=== PATIENT | female | born 1955 | race Caucasian/White ===

== ENCOUNTER → 2016-09-19 | Outpatient (CLI) | payer MEDICARE ==
[2015-11-09 11:00] VITALS: BP 127/73
[~2016-09-19] MED LIST: ALPR1TAB2 PO; AMIT50TA PO; ASCO500T3 PO; ASPI81TA2 PO; ATOR40TA PO; CALC-128 PO; CALC500T50 PO; CHOL100017 PO; CITA20TA5 PO; CLOP75TA PO; CLOP75TA27 PO; CYAN50LO PO; CYCL10TA2 PO; DABI150C PO; DICY10CA3 PO; ERGO500012 PO; ERGO50002 PO; ESZO3TAB9 PO; EZET10TA3 PO; FAMO-63 PO; FENO160T PO; FERR-26 PO; FERR325T72 PO; FISH OIL OMEGA1 EACH PO; GABA600T2 PO; IBUP-1060 PO; LACT1CAP21 PO; LEVO200T5 PO; LEVO25TA4 PO; LOSA50TA6 PO; LUTE10TA PO; METF500T4 PO; METH-39 PO; MULT-246 PO; MULT1TAB77 PO; OMEG500C3 PO; OXYC5TAB88 PO; PANT40TA3 PO; PARO20TA3 PO; POTA10TA12 PO; PROAIR HFA8.5 GM INH; SOTA80TA48 PO; TRAM50TA PO; VITA1TAB49 PO; VITA80003 PO; WARF-78 PO
--- NOTE | 2016-09-19 10:10 | RAD ---
Indication: Dizziness and syncope. Grayscale, color-flow and duplex Doppler evaluation of both carotid systems was performed. There is mild plaquing identified at both carotid bifurcations and proximal internal carotid arteries. Velocities in both common carotid arteries are normal. The velocities in both internal carotid arteries are normal. There is some mild velocity elevation in the right external carotid artery reaching 202 cm/s. The left vertebral artery shows antegrade flow. There is bidirectional flow in the right vertebral artery. The ICA/CCA ratio on the right is 1.1 and on the left 1.5. Impression: Mild bilateral carotid plaque. There is no evidence of a hemodynamically significant stenosis.
== END | disposition home or self-care (01) ==
LOC: US 09:10
PROVIDERS: ATTEND Family Medicine
DX: G45.9 Transient cerebral ischemic attack, unspecified (principal); R55 Syncope and collapse
CPT/HCPCS: 93880

== ENCOUNTER → 2016-09-28 | Outpatient (CLI) | payer MEDICARE ==
[2015-11-09 11:00] VITALS: BP 127/73
--- NOTE | 2016-09-28 10:57 | CARD ---
APPROVED REPORT PROCEDURE: Successful implantation of [employer]ik Biomonitor loop recorder INDICATIONS: Recurrent syncope of uncertain etiology r/o atrial fibrillation PROCEDURE DETAILS: An informed consent was obtained from patient. Patient was brought to the procedure suite and her le ft chest and shoulder were prepped and draped in the usual fashion. 20 mL of 2% lidocaine was infilt rated into the skin and subcutaneous tissues for local anesthesia. An incision was made in the left fifth intercostal space 1 inch from midsternal line and using the introducer provided with the kit a track was created in subcutaneous tissue. Subsequently, with the help of the deployer provided with the kit, a Bi[employer]ik Biomonitor loop recorder serial number [id number] was placed in the subcutaneous tis kaden. The incision was closed in one layer. Hemostasis was secured. Patient tolerated the procedure well. There were no immediate complications. At the end of procedure, the device showed sensing am plitude of 0.55 mV. CONCLUSION: Successful implantation of Biotronik Biomonitor loop recorder for recurrent syncope of uncertain etio logy to rule out any significant arrhythmias.
== END | disposition home or self-care (01) ==
LOC: LINQ 08:34
PROVIDERS: ATTEND Internal Medicine Cardiovascular Disease
DX: I48.91 Unspecified atrial fibrillation (principal); I10 Essential (primary) hypertension; E78.00 Pure hypercholesterolemia, unspecified; J44.9 Chronic obstructive pulmonary disease, unspecified; E66.9 Obesity, unspecified; K21.9 Gastro-esophageal reflux disease without esophagitis; M19.90 Unspecified osteoarthritis, unspecified site; E03.9 Hypothyroidism, unspecified; E11.9 Type 2 diabetes mellitus without complications; F41.9 Anxiety disorder, unspecified; F32.9 Major depressive disorder, single episode, unspecified; Z96.642 Presence of left artificial hip joint; Z72.89 Other problems related to lifestyle; Z72.0 Tobacco use; Z90.49 Acquired absence of other specified parts of digestive tract
CPT/HCPCS: 33282; C1764

== ENCOUNTER → 2016-10-05 | Outpatient (CLI) | payer MEDICARE ==
[2015-11-09 11:00] VITALS: BP 127/73
[~2016-10-05] MED LIST changes: +REGADENOSON 0.4 MG/5 ML DISP.SYRIN. IV ONE
--- NOTE | 2016-10-05 13:25 | RAD ---
APPROVED REPORT Test Type: Pharmacological Stress Nurse/Tech: Amelie Polanco R.N. Test Indications: Chest pain, SOA, Syncope Cardiac History: Coronary Stent, HTN Medications: SEE EMR Medical History: Smoker x 45 years, DM, COPD Resting ECG: SR Resting Heart Rate: 65 bpm Resting Blood Pressure: 150/58mmHg Pretest Chest Pain: No chest pain Nurse/Tech Notes S1S2, lungs diminished throughout but no crackles or wheezes noted, denied chest pain, SOA or dizzine ss. Placed on 2LNC for 02 sats 88-89%RA. Consent: The procedure was explained to the patient in lay terms. Informed consent was witnessed. Max eout was entered into [employer]. History and Stress Test performed by Amelie Polanco R.N. Pharm. Details Pharmacologic stress testing was performed using 0.4mg per 5ml of regadenoson given intravenously ove r 7-10 seconds. Stress Symptoms SOA, nausea. POST EXERCISE Reason for Termination: Infusion complete Max HR: 82 bpm Max Blood Pressure: 158/54mmHg Blood Pressure response to exercise: Normal blood pressure response during stress. Heart Rate response to exercise: Normal Chest Pain: No. Arrhythmia: No. ST Change: No. INTERPRETATION Stress EKG Conclusion: Baseline EKG showed sinus rhythm. No ischemic changes at peak stress. No arr hythmias. Imaging Protocol IMAGE PROTOCOL: Rest Tc-99m/stress Tc-99m 1 day Rest: Stress: Viability: Radiopharm.Tc99m SfesrejxiAt49g Sestamibi Dose10.5mCi 34mCi Duration 15min. 10min. Img Date 10/05/2016 10/05/2016 Inj-Img Qwod04oxg. 60min. Rest Admin Site:IV - Right AntecubitalAdministrator:RT Jun (R)(N) Stress Admin Site: IV - Right AntecubitalAdministrator: LORI [place] STRESS DATA End Diast. Vol.84.0mlAv. Heart Rate74.0bpm End Syst. Vol.18.0mlCO Index BSA0.0L/min Myocardial Wzvl453.0gEject. Hcfdtbty11.0% Stress Rates Pk. Fill Rate2.25EDV/secLVtime Pk. Fill 198.36msec Pk. Empty Rate3.46ESV/secLVtime Pk. Xyiqp047.88msec 1/3 Pk. Fill1.05EDV/sec Stress Scores Regional WT1.00Summed WT2.00 Regional WM0.00Summed WM1.00 Study quality was good. Left Ventricular size was Normal at Rest and Stress. Lung uptake was Normal. Left Ventricular ejection fraction is 79%. The rest and stress images show normal perfusion, normal contraction and thickening. LV Perf. Quant 17 Seg. SSS2.00 17 Seg. SRS0.00 17 Seg. SDS2.00 Stress Defect Extent (% LAD)0.00Rest Defect Extent (% LAD)0.00Rev. Defect Extent (% LAD)0.00 Stress Defect Extent (% LCX) 15.00Rest Defect Extent (% LCX)7.50Rev. Defect Extent (% LCX)2.50 Stress Defect Extent (% RCA)0.00Rest Defect Extent (% RCA)0.00Rev. Defect Extent (% RCA)0.00 Stress Defect Extent (% NITIN)2.60Rest Defect Extent (% NITIN)1.30Rev. Defect Extent (% NITIN)0.40 Conclusion 1. Regadenoson cardioisotope stress test did not show any evidence of ischemia or infarct. 2. Normal left ventricular systolic function with ejection fraction calculated at 79%. 3. Low risk for cardiac events.
== END | disposition home or self-care (01) ==
LOC: NM 08:51
PROVIDERS: ATTEND Internal Medicine Cardiovascular Disease
DX: I25.10 Atherosclerotic heart disease of native coronary artery without angina pectoris (principal); E11.9 Type 2 diabetes mellitus without complications; I10 Essential (primary) hypertension; J44.9 Chronic obstructive pulmonary disease, unspecified; R11.0 Nausea; F17.200 Nicotine dependence, unspecified, uncomplicated; Z95.5 Presence of coronary angioplasty implant and graft
CPT/HCPCS: 78452; 93017; 96374; 96375; 96376; A9500; J2785

== ENCOUNTER → 2017-11-28 | Outpatient (CLI) | payer MEDICARE | END | disposition home or self-care (01) | LOC: ECHO 07:29 | DX: I25.10 Atherosclerotic heart disease of native coronary artery without angina pectoris (principal); E11.51 Type 2 diabetes mellitus with diabetic peripheral angiopathy without gangrene; E78.5 Hyperlipidemia, unspecified; E78.00 Pure hypercholesterolemia, unspecified; E03.9 Hypothyroidism, unspecified; J44.9 Chronic obstructive pulmonary disease, unspecified; I12.9 Hypertensive chronic kidney disease with stage 1 through stage 4 chronic kidney disease, or unspecified chronic kidney disease; N18.9 Chronic kidney disease, unspecified; K21.9 Gastro-esophageal reflux disease without esophagitis; E66.9 Obesity, unspecified | CPT/HCPCS: 93306 ==

== ENCOUNTER → 2018-04-24 | Outpatient (CLI) | payer MEDICARE ==
[2016-10-30 14:39] VITALS: BP 142/62
[~2018-04-24] MED LIST changes: +ASPI-630 PO; -ASPI81TA2 PO; +BENZ100C PO; -CALC500T50 PO; +CALC500T54 PO; -CITA20TA5 PO; +CITA20TA6 PO; -CLOP75TA27 PO; +CLOP75TA57 PO; +CRESTOR10 MG PO; +CRESTOR20 MG PO; -ERGO500012 PO; +ERGO500027 PO; +ESZO3TAB28 PO; -ESZO3TAB9 PO; +EZET10TA18 PO; -EZET10TA3 PO; -FERR-26 PO; +FERR325T14 PO; +HYDR12.575 PO; +ISOS30TA4 PO; +LEVO200T PO; +LOSA-73 PO; -LOSA50TA6 PO; -LUTE10TA PO; +LUTE10TA2 PO; +METF500T16 PO; -METF500T4 PO; -REGADENOSON 0.4 MG/5 ML DISP.SYRIN. IV ONE
--- NOTE | 2018-04-24 12:05 | KCIC ---
PQRS Compliance statement: One or more of the following individualized dose reduction techniques were utilized for this examination: 1. Automated exposure control. 2. Adjustment of the mA and/or kV according to patient size. 3. Use of iterative reconstruction technique. Indication:Right arm weakness. Hypertension. TECHNIQUE: CT head without IV contrast COMPARISON: None FINDINGS: No pathologic extra-axial or intra-axial fluid collection. The ventricles and basal cisterns are within normal limits. No acute intracranial bleed. No focal loss of villalta-white differentiation. Orbits within normal limits. No suspicious bony lesion. Visualized paranasal sinuses and mastoid air cells are clear. Impression: No acute intracranial process. If concern for acute ischemic stroke is high, please consider MRI brain. Electronically signed by: Marco Figueroa DO (04/24/2018 12:01 PM) [facility]
--- NOTE | 2018-04-24 12:12 | KCIC ---
Bilateral digital screening mammograms: Reason for examination: Routine screening. Comparison is made to previous studies dated 01/12/2015 and 01/21/2009. Interpretation was made with the benefit of CAD. The skin and nipples show no abnormalities. No abnormal axillary lymph nodes are seen. The breast parenchyma shows scattered fibroglandular density. (Breast density: Category B.) There appears to be a new 6.1 mm nodule in the 1:00 B position of the left breast approximately 7 cm from the nipple mammographically. Recommend further evaluation with ultrasound. There are no other dominant masses, suspicious calcifications or architectural distortions. Some benign calcifications are present. Impression: New 6.1 mm nodule at the 1:00 B position of the left breast. Recommend further evaluation with ultrasound. BI-RADS Category 0: Incomplete. Needs additional imaging evaluation. "Our facility is accredited by the [employer] Mammography Program." This patient's information has been entered into a reminder system for the patient to be notified with the results of her examination and a target date for the next mammogram. Electronically signed by: Barbra East MD (04/24/2018 12:08 PM) [facility]
--- NOTE | 2018-04-24 12:23 | KCIC ---
BILATERAL DUPLEX CAROTID SONOGRAPHY History: Facial numbness. Comparison: Carotid Doppler ultrasound, September 19, 2016. Technique: Duplex sonography of the cervical portion of both carotid arteries was performed. Real-time grayscale, color flow Doppler, and Doppler spectral waveform analysis is performed. Findings: Right side: Peak systolic flow velocity of the CCA is 70 cm/sec. Peak systolic flow velocity of the ICA is 105 cm/sec. The ICA/CCA ratio is 1.3. Peak end diastolic flow velocity of the ICA is 31 cm/sec. The peak systolic velocity of the ECA is 202 cm/sec. This is unchanged from prior study. Mild echogenic plaque in the carotid bulb. Left side: Peak systolic flow velocity of the CCA is 60 cm/sec. Peak systolic flow velocity of the ICA is 111 cm/sec. The ICA/CCA ratio is 1.5. Peak end diastolic flow velocity of the ICA is 39 cm/sec. Peak systolic flow velocity of the ECA is 115 cm/sec. Mild echogenic plaque in the carotid bulb. Vertebral arteries: Bilateral vertebral arteries demonstrate antegrade flow. IMPRESSION: No hemodynamically significant internal carotid artery stenosis is identified. PQRS Compliance Statement - Stenosis calculations for CT, MR and conventional angiography are based upon measurement of the distal ICA diameter in accordance with the NASCET methodology. Stenosis calculations for carotid ultrasound studies are derived from validated velocity criteria which are known to correlate with the NASCET methodology. Electronically signed by: Koko Jorge MD (04/24/2018 12:20 PM) [id number]
== END | disposition home or self-care (01) ==
LOC: KCIC MAMMO 09:49
PROVIDERS: ATTEND Family Medicine
DX: Z12.31 Encounter for screening mammogram for malignant neoplasm of breast (principal); N63.21 Unspecified lump in the left breast, upper outer quadrant; I65.23 Occlusion and stenosis of bilateral carotid arteries; I10 Essential (primary) hypertension; E11.9 Type 2 diabetes mellitus without complications; J44.9 Chronic obstructive pulmonary disease, unspecified; R53.1 Weakness; Z87.891 Personal history of nicotine dependence; Z79.01 Long term (current) use of anticoagulants
CPT/HCPCS: 70450; 77067; 93880

== ENCOUNTER → 2019-03-13 | Outpatient (CLI) | payer OTHER ==
[2016-10-30 14:39] VITALS: BP 142/62
[~2019-03-13] MED LIST changes: +ALBU2.5V8 INH; -EZET10TA18 PO; +EZET10TA20 PO; -GABA600T2 PO; +GABA600T7 PO; -PANT40TA3 PO; +PANT40TA77 PO; -PROAIR HFA8.5 GM INH; +REGADENOSON 0.4 MG/5 ML DISP.SYRIN. IV ONE
--- NOTE | 2019-03-13 10:53 | CARD ---
MR#: [id number] Date of Study: 03/13/2019 Ordering Physician: JENIFER GOYAL, Referring Physician: JENIFER GOYAL, Tech: Sulma Larson APPROVED REPORT EXAM: Two-dimensional and M-mode echocardiogram with Doppler and color Doppler. Other Information Quality : AverageHR: 64bpm Technically limited study due to body habitus and smoking. INDICATION Atrial Fibrillation RISK FACTORS Hypertension Hyperlipidemia Diabetes 2D DIMENSIONS RVDd3.2 (2.9-3.5cm)Left Atrium(2D)3.2 (1.6-4.0cm) IVSd1.6 (0.7-1.1cm)Aortic Root(2D)2.9 (2.0-3.7cm) LVDd4.0 (3.9-5.9cm)LVOT Diameter2.0 (1.8-2.4cm) PWd1.3 (0.7-1.1cm)LVDs2.0 (2.5-4.0cm) FS (%) 49.1 %SV56.1 ml LVEF(%)81.0 (>50%) Aortic Valve AoV Peak Jason.153.5cm/sAoV VTI29.0cm AO Peak GR.9.4mmHgLVOT Peak Jason.122.8cm/s LVOT VTI 29.29cmAO Mean GR.5mmHg NANETTE (VMAX)1.63rl4YGG (VTI)3.13cm2 Mitral Valve MV E Ewvzvuwc62.8cm/sMV DECEL KMYA972ix MV A Bbjcbjcc31.5cm/sMV MXC671pe E/A Ratio0.7MVA (PHT)2.03cm2 TDI E/Lateral E'9.3E/Medial E'7.7 Pulmonary Valve PV Peak Ifguavrx341.8cm/sPV Peak Grad.5mmHg Tricuspid Valve TR P. Yupioaqw589lc/sRAP ZXUJQCOC4xxMb TR Peak Gr.34lsNcPCHW55kqLz Pulmonary Vein S1 Kxejqoze93.3cm/sD2 Cidtinti11.6cm/s PVa nltafxeo206jwdu LEFT VENTRICLE The left ventricle is normal size. There is moderate concentric left ventricular hypertrophy. The lef t ventricular systolic function is normal. The Ejection Fraction is 65-70%. There is normal LV segmen teresa wall motion. Transmitral Doppler flow pattern is Grade I-abnormal relaxation pattern. RIGHT VENTRICLE The right ventricle is normal size. There is normal right ventricular wall thickness. The right ventr icular systolic function is normal. ATRIA The left atrium size is normal. The right atrium size is normal. The interatrial septum is intact wit h no evidence for an atrial septal defect or patent foramen ovale as noted on 2-D or Doppler imaging. AORTIC VALVE The aortic valve is normal in structure and function. Doppler and Color Flow revealed no significant aortic regurgitation. There is no significant aortic valvular stenosis. MITRAL VALVE The mitral valve is normal in structure and function. There is no evidence of mitral valve prolapse. There is no mitral valve stenosis. Doppler and Color-flow revealed trace mitral regurgitation. TRICUSPID VALVE The tricuspid valve is normal in structure and function. Doppler and Color Flow revealed trace tricus pid regurgitation with an estimated PAP of 23 mmHg. There is no tricuspid valve stenosis. PULMONIC VALVE The pulmonic valve is not well visualized. Doppler and Color Flow revealed no pulmonic valvular regur gitation. GREAT VESSELS The aortic root is normal in size. The IVC is normal in size and collapses >50% with inspiration. PERICARDIAL EFFUSION There is no evidence of significant pericardial effusion. Critical Notification Critical Value: No <Conclusion> The left ventricular systolic function is normal. The Ejection Fraction is 65-70%. There is normal LV segmental wall motion. Transmitral Doppler flow pattern is Grade I-abnormal relaxation pattern. Trace mitral regurgitation. Trace tricuspid regurgitation with an estimated PAP of 23 mmHg. There is no evidence of significant pericardial effusion. Signed by : Jenifer Goyal, Electronically Approved : 03/13/2019 10:52:54
--- NOTE | 2019-03-13 12:16 | RAD ---
MR#: [id number] Date of Study: 03/13/2019 Ordering Physician: JENIFER SHARMA, Referring Physician: TATI DUONG Tech: RT Darrick BarahonaR) (N) APPROVED REPORT Test Type: Pharmacological Stress Nurse/Tech: Zachariah ABRAHAM Test Indications: CAD Cardiac History: CAD, 1 stent 5 yrs ago, HTN, Implanted heart monitor, See EMR Medications: Plavix, See EMR Medical History: Smoker x45yrs., COPD, DM, See EMR Resting ECG: SR Resting Heart Rate: 65 bpm Resting Blood Pressure: 148/61mmHg Pretest Chest Pain: No chest pain Nurse/Tech Notes Lungs CTA, Heart tones regular. Consent: The procedure was explained to the patient in lay terms. Informed consent was witnessed. Max eout was entered into [employer]. History and Stress Test performed by RT Emma Barahona) (N) Pharm. Details Pharmacologic stress testing was performed using 0.4mg per 5ml of regadenoson given intravenously ove r 7-10 seconds. Stress Symptoms Pt c/o having CP at a 5/10 at stage R time OO:55. The patient then explained it as a anxiety feeling. This pain/feeling did not decrease or resolve until the patient was leaving the room. POST EXERCISE Reason for Termination: Infusion complete Max HR: 86 bpm Max Blood Pressure: 124/52mmHg Blood Pressure response to exercise: Normal blood pressure response during stress. Heart Rate response to exercise: WNL Chest Pain: Yes. See Stress Symptoms Arrhythmia: No. ST Change: No. INTERPRETATION Stress EKG Conclusion: No evidence of stress induced EKG changes. Imaging Protocol IMAGE PROTOCOL: Rest Tc-99m/stress Tc-99m 1 day Rest: Stress: Viability: Radiopharm.Tc99m FjqghytrtVa86h Sestamibi Nhee82rKa 33mCi Duration 13min. 13min. Img Date 03/13/2019 03/13/2019 Inj-Img Sswj51ela. 60min. Rest Admin Site:IV - Right AntecubitalAdministrator:RT Emma Ryan)(N) Stress Admin Site: IV - Right AntecubitalAdministrator: LORI [place] STRESS DATA End Diast. Vol.63.0mlAv. Heart Rate64.0bpm LVEDV index BSA33.0mlCardiac Output0.0L/min End Syst. Vol.13.0mlCO Index BSA0.0L/min LVESV index BSA7.0mlMyocardial Leza312.0g Eject. Vpsnizyj34.0% Stress Scores Regional WT2.00Summed WT14.00 Regional WM0.00Summed WM0.00 The rest and stress images show normal perfusion, normal contraction and thickening. LV Perfusion There is a very small sized, moderate intensity basal reversible perfusion defect suggestive of artif act given normal wall motion versus very mild pefusion defecit. Wall Motion Normal EF at > 60% LV Perf. Quant 17 Seg. SSS5.00 17 Seg. SRS0.00 17 Seg. SDS5.00 Stress Defect Extent (% LAD)0.00Rest Defect Extent (% LAD)0.00Rev. Defect Extent (% LAD)0.00 Stress Defect Extent (% LCX) 52.50Rest Defect Extent (% LCX)21.30Rev. Defect Extent (% LCX)41.30 Stress Defect Extent (% RCA)0.00Rest Defect Extent (% RCA)0.00Rev. Defect Extent (% RCA)0.00 Stress Defect Extent (% NITIN)9.10Rest Defect Extent (% NITIN)3.70Rev. Defect Extent (% NITIN)7.20 Other Information Quality:Good Risk Assessment: Low Risk Conclusion 1. No evidence of stress induced EKG changes. Non-specific ST/T changes at baseline and stress. 2. Very small basal lateral reversal perfusion defect, likely due to artifact or anatomic variant. 3. Low risk study 4. Normal EF at > 65% Signed by : Martin Lilly, Electronically Approved : 03/13/2019 12:15:38
== END | disposition home or self-care (01) ==
LOC: NM 07:53
PROVIDERS: ATTEND Internal Medicine Cardiovascular Disease
DX: I11.9 Hypertensive heart disease without heart failure (principal); I25.10 Atherosclerotic heart disease of native coronary artery without angina pectoris; I48.91 Unspecified atrial fibrillation; E78.5 Hyperlipidemia, unspecified; E11.9 Type 2 diabetes mellitus without complications; J44.9 Chronic obstructive pulmonary disease, unspecified; F17.200 Nicotine dependence, unspecified, uncomplicated; Z88.2 Allergy status to sulfonamides; Z91.041 Radiographic dye allergy status; Z95.818 Presence of other cardiac implants and grafts; Z79.01 Long term (current) use of anticoagulants
CPT/HCPCS: 78452; 93017; 93306; A9500; J2785

== ENCOUNTER → 2019-03-25 | Outpatient (CLI) | payer OTHER ==
[2016-10-30 14:39] VITALS: BP 142/62
[~2019-03-25] MED LIST changes: +AMLO10TA8 PO; +BUDE0.5A3 NEB; +CHOL100016 PO; +CRESTOR40 MG PO; +EVOL140P SQ; +LOSA100T14 PO; +MULT-496 PO; +NABU750T PO; -REGADENOSON 0.4 MG/5 ML DISP.SYRIN. IV ONE; +TIZA4TAB2 PO
--- NOTE | 2019-03-26 09:36 | RAD ---
MR#: [id number] Date of Study: 03/25/2019 Ordering Physician: JENIFER SHARMA, Referring Physician: JENIFER SHARMA, Tech: NICOLA Huerta, RDMS, RTR APPROVED REPORT Patient Location: OUT-PATIENT Indications Rest Pain:Bilaterally VELOCITY AND DOPPLER WAVEFORM ANALYSIS RIGHT cm/secWaveformSeverity LEFT cm/secWaveform Severity dCFA 130.0BiphasicdCFA 152.0Biphasic Prof Fem Art. 141.0BiphasicProf Fem Art. 70.0Biphasic Fem Art Prox. 135.0BiphasicFem Art Prox. 120.0Biphasic Fem Art Mid. 141.0BiphasicFem Art Mid. 150.0Biphasic Fem Art Dist. 141.0BiphasicFem Art Dist. 142.0Biphasic Pop Art(Fossa) 216.0BiphasicPop Art(AK) 135.0Biphasic AUTOMOTIVE BRAKE ADJUSTER Prox. 98.0BiphasicPTA Prox. 96.0Biphasic Per Art Mid. 67.0BiphasicPer Art Mid. 57.0Biphasic IVETH Prox. 105.0BiphasicATA Prox. 68.0Biphasic DPA 118BiphasicDPA 61Biphasic Findings Grayscale images of the bilateral lower extremity arterial vessels reveal moderate diffuse plaque. Th ere is mild to moderate intimal hyperplasia. On the right there are mostly biphasic waveforms from the common femoral artery to the below-knee ves sels. There is likely a 50% stenosis involving the popliteal artery. Below the knee there is robust t hree-vessel runoff. This suggests that the popliteal artery stenosis is likely not significant. On the left there are again biphasic waveforms from the common femoral artery to the below-knee vesse ls. No focal high-grade stenosis is identified with robust three-vessel runoff below the knee. Critical Notification Critical Value: No <Conclusion> 1. Probable mild to moderate right popliteal artery disease but otherwise grossly unremarkable with b ilateral three-vessel runoff. Signed by : Martin Lilly, Electronically Approved : 03/26/2019 09:35:35
== END | disposition home or self-care (01) ==
LOC: US 15:42
PROVIDERS: ATTEND Internal Medicine Cardiovascular Disease
DX: I70.293 Other atherosclerosis of native arteries of extremities, bilateral legs (principal)
CPT/HCPCS: 93925

== ENCOUNTER → 2019-03-31 | Outpatient (CLI) | payer OTHER ==
[2019-03-31] VITALS (11 sets, daily range): BP systolic 119–170; BP diastolic 53–97
[~2019-03-31] VITALS: Ht 160 cm; Wt 77.1 kg
[~2019-03-31] MED LIST changes: +FAMOTIDINE 20 MG/2 ML VIAL IVP ONE; +FAMOTIDINE 20 MG/2 ML VIAL ONE; +HEPARIN for IV BOLUS 10,000 UNIT/10 ML VIAL. IART ONE; +HEPARIN for IV BOLUS 10,000 UNIT/10 ML VIAL. ONE; +IODIXANOL 320 MG/ML 100 ML VIAL. IART ONE; +IODIXANOL 320 MG/ML 100 ML VIAL. ONE; +IV 1/2 NORMAL SALINE 1,000 ML IV SCH; +LIDOCAINE 1% PF 2 ML VIAL. INJ ONE; +LIDOCAINE 1% PF 2 ML VIAL. ONE; +MIDAZOLAM HCL/PF 2 MG/2 ML VIAL. IV ONE; +MIDAZOLAM HCL/PF 2 MG/2 ML VIAL. ONE; +NITROGLYCERIN 200 MCG/2 ML SYRINGE FOR CATH/VASC LAB. IART ONE; +NITROGLYCERIN 200 MCG/2 ML SYRINGE FOR CATH/VASC LAB. ONE; +NITROGLYCERIN SUBLINGUAL 0.4 MG BOTTLE OF 25. SL PRN; +VERAPAMIL 5 MG/2 ML VIAL. IART ONE; +VERAPAMIL 5 MG/2 ML VIAL. ONE; +diphenhydrAMINE 50 MG/ML VIAL IV ONE; +diphenhydrAMINE 50 MG/ML VIAL ONE; +fentaNYL PF VIAL 100 MCG/2 ML VIAL IV ONE; +fentaNYL PF VIAL 100 MCG/2 ML VIAL ONE; +methylPREDNISolone SOD SUCC PF 125 MG/2 ML VIAL. IV ONE; +methylPREDNISolone SOD SUCC PF 125 MG/2 ML VIAL. ONE
[2019-03-31 07:30] LABS: HEMATOCRIT 39.2 % (36.0-47.0); HEMOGLOBIN 13.1 g/dL (12.0-15.5); RED BLOOD COUNT 4.23 x10^6/uL (3.50-5.40); RED CELL DISTRIBUTION WIDTH 14.6 % (11.5-14.5); WHITE BLOOD COUNT 8.3 x10^3/uL (4.0-11.0)
[2019-03-31 07:41] LABS: PROTHROMBIN TIME PATIENT 11.6 SEC (11.7-14.0)
[2019-03-31 07:47] LABS: CALCIUM 8.7 mg/dL (8.5-10.1); CREATININE 0.8 mg/dL (0.6-1.0); GFR 72.7; POTASSIUM 4.2 mmol/L (3.5-5.1)
--- NOTE | 2019-03-31 09:25 | PDOC ---
MODERATE SEDATION ASSESSMENT RISKS/ALTERNATIVES Risks/Alternatives Risks and alternatives of this type of sedation and procedure discussed with: RISK/ALTERNATIVES: Patient H & P ON CHART H & P H & P on chart and reviewed for co-morbid conditions and appropriate labs. H&P ON CHART: Yes STATUS PREG STATUS ASSESSED: N/A MEDS/ALLERGIES REVIEWED Meds/Allergies Reviewed Medications and Allergies including time and route of recently administered narcotics and sedatives. MEDS/ALLERGIES REVIEWED: Yes ASA RATING ASA RATING: III AIRWAY ASSESSMENT Airway Assessment Airway patency, oral function limitations, presence of caps, crowns, dentures, partials, and ability to extend neck assessed. AIRWAY ASSESSMENT: Yes MALLAMPATI SCORE MALLAMPATI SCORE: II PRE-SEDATION ASSESSMENT PRE-SEDATION ASSESSMENT: Yes JENIFER SAHRMA MD Mar 31, 2019 09:25
--- NOTE | 2019-03-31 10:49 | CARD ---
MR#: [id number] Date of Study: 03/31/2019 Ordering Physician: JENIFER SHARMA, Referring Physician: JENIFER SHARMA Tech: ARMAND CANSECO RTR APPROVED REPORT Technologist: ARMAND CANSECO RTR Nurse: Katarina Du RN Procedure(s) performed: Left heart catheterization, selective coronary angiography via right transrad ial approach MODERATE SEDATIONTIME: 30 MINUTES FLUORO TIME: 4.0 MIN DOSE: 45.5 GYCM2 CONTRAST: 103CC INDICATION The indication(s) include : unstable angina . [facility] Clinical Frailty Scale [facility] Clinical Frailty Scale: Moderately Frail Heart Failure Heart Failure: No PROCEDURE NARRATIVE After explaining the risks, benefits and alternative options, informed consent was obtained from addy ent. Patient was brought to the cardiac Tank Inspector and right wrist was prepped and draped in the usual fashion after confirming a positive modified Gavin's test. Arterial access was obtained in the [facility] t radial artery and a 6 Colombian sheath was inserted. 6 Colombian Apolinar catheter was used to perform zachariah ective angiography of the left and right coronary arteries. LVEDP and transaortic gradients remeasure d. Left ventriculography was not performed since recent 2-D echo showed normal LV function. Patient t olerated the procedure well. Hemostasis was achieved using TR band. There were no immediate complic ations. The following findings were noted. FINDINGS 1. Hemodynamics: Left ventricular end-diastolic pressure of 29 mmHg. No pullback gradient across th e aortic valve. 2. Coronary angiography: a. The left main coronary artery arose from the left sinus of Valsalva, gave rise to the left anteri or descending, ramus intermedius and left circumflex arteries and did not show any significant stenos is. b. The left anterior descending artery did not show any significant stenosis in the main artery itse lf but the second diagonal branch which is a small-caliber vessel showed 80% proximal segment stenosi s. This was described in prior cardiac catheterization. c. The left circumflex artery showed 50% stenosis in the midsegment. The obtuse marginal branch whic h is a small-caliber vessel showed 40% proximal segment stenosis. d. The ramus intermedius artery showed 40% stenosis in the proximal segment. e. The right coronary artery was a large and dominant vessel arising from the right sinus of Valsalv a that showed widely patent stent in the midsegment and 30% stenosis just distal to the stent. Conclusion Widely patent previously placed stent in the right coronary artery without any lesions needing interv ention. Recommendations Medical Therapy Signed by : Jenifer Sharma, Electronically Approved : 03/31/2019 10:48:50
--- NOTE | 2019-03-31 12:58 | NUR ---
pt A&O x 3. tolerating po well. VSS. ambulated to BR w/o problem. rt radial site clean and dressed , no bleeding or swelling. armboard reapplied to rt wrist/hand area. d/c instructions given, questions answered. out to vehicle per w/c. pt's sister to drive her home.
== END ==
LOC: CCL 06:58
PROVIDERS: ATTEND Internal Medicine Cardiovascular Disease
DX: I25.110 Atherosclerotic heart disease of native coronary artery with unstable angina pectoris (principal)
CPT/HCPCS: 36415; 80048; 85027; 85610; 93458; 99152; 99153; C1769; C1892; J1200; J1644; J2250; J2930; J3010; J3490; Q9967

== ENCOUNTER 2019-06-23 06:56 | Observation (INO) | payer MEDICARE ==
[~2019-06-23] VITALS: Ht 157.5 cm; Wt 82.4 kg
[~2019-06-23 06:56] MED LIST changes: -EVOL140P SQ; +EVOL140P3 SQ; -FAMOTIDINE 20 MG/2 ML VIAL IVP ONE; -FAMOTIDINE 20 MG/2 ML VIAL ONE; -HEPARIN for IV BOLUS 10,000 UNIT/10 ML VIAL. IART ONE; -HEPARIN for IV BOLUS 10,000 UNIT/10 ML VIAL. ONE; -IODIXANOL 320 MG/ML 100 ML VIAL. IART ONE; -IODIXANOL 320 MG/ML 100 ML VIAL. ONE; -IV 1/2 NORMAL SALINE 1,000 ML IV SCH; -LIDOCAINE 1% PF 2 ML VIAL. INJ ONE; -LIDOCAINE 1% PF 2 ML VIAL. ONE; -MIDAZOLAM HCL/PF 2 MG/2 ML VIAL. IV ONE; -MIDAZOLAM HCL/PF 2 MG/2 ML VIAL. ONE; -NITROGLYCERIN 200 MCG/2 ML SYRINGE FOR CATH/VASC LAB. IART ONE; -NITROGLYCERIN 200 MCG/2 ML SYRINGE FOR CATH/VASC LAB. ONE; -NITROGLYCERIN SUBLINGUAL 0.4 MG BOTTLE OF 25. SL PRN; -POTA10TA12 PO; +POTASSIUM CHLO10 ME1 PO; -VERAPAMIL 5 MG/2 ML VIAL. IART ONE; -VERAPAMIL 5 MG/2 ML VIAL. ONE; +ceFAZolin SODIUM IV Push 1 GM VIAL. IVP ONE; -diphenhydrAMINE 50 MG/ML VIAL IV ONE; -diphenhydrAMINE 50 MG/ML VIAL ONE; -fentaNYL PF VIAL 100 MCG/2 ML VIAL IV ONE; -fentaNYL PF VIAL 100 MCG/2 ML VIAL ONE; -methylPREDNISolone SOD SUCC PF 125 MG/2 ML VIAL. IV ONE; -methylPREDNISolone SOD SUCC PF 125 MG/2 ML VIAL. ONE
[2019-06-23] MEDS ORDERED: METH-38 PO (07:41)
[2019-06-23] MEDS ORDERED: LABE100T5 PO (07:41)
[2019-06-23] MEDS ORDERED: GABA300C18 PO (07:41)
[2019-06-23] MEDS ORDERED: ALPR0.25 PO (07:41)
[2019-06-23 07:42] VITALS: BP 102/66
[2019-06-23 07:51] LABS: HEMATOCRIT 39.2 % (36.0-47.0); HEMOGLOBIN 12.9 g/dL (12.0-15.5); RED BLOOD COUNT 4.2 x10^6/uL (3.50-5.40); WHITE BLOOD COUNT 7.3 x10^3/uL (4.0-11.0)
--- NOTE | 2019-06-23 07:54 | EKG ---
[facility] [address] [place] [address] Test Date: 2019-06-23 Test Time: 07:50:36 Pat Name: JUAN RODAS Department: Room: Gender: F Costing Analyst: : 1955 Requested By: JENIFER SHARMA Order Number: [id number] Reading MD: Measurements Intervals [place] Rate: 50 P: MT: QRS: 30 QRSD: 94 T: 247 QT: 496 QTc: 455 Interpretive Statements IRREGULAR RHYTHM, NO P-WAVE FOUND R-S TRANSITION ZONE IN V LEADS DISPLACED TO THE LEFT LVH WITH REPOLARIZATION ABNORMALITY ABNORMAL ECG RI6.02 Compared to ECG 10/28/2016 08:47:18 Supraventricular rhythm no longer present Left-axis deviation no longer present Left anterior fascicular block no longer present Myocardial infarct finding no longer present
[2019-06-23 08:03] LABS: PROTHROMBIN TIME PATIENT 12.8 SEC (11.7-14.0)
[2019-06-23 08:04] LABS: CALCIUM 9.2 mg/dL (8.5-10.1); CREATININE 1.1 mg/dL (0.6-1.0); GFR 50.2; POTASSIUM 4.5 mmol/L (3.5-5.1)
[2019-06-23] MEDS ORDERED: fentaNYL PF VIAL 100 MCG/2 ML VIAL ONE ×2 (08:21→09:05)
[2019-06-23] MEDS ORDERED: MIDAZOLAM HCL/PF 2 MG/2 ML VIAL. ONE ×3 (08:21→08:56)
[2019-06-23] MEDS ORDERED: LIDOCAINE 2%/EPI 1:100,000 20 ML VIAL. ONE (08:45)
[2019-06-23] MEDS ORDERED: MIDAZOLAM HCL/PF 2 MG/2 ML VIAL. IV ONE (08:45)
[2019-06-23] MEDS ORDERED: fentaNYL PF VIAL 100 MCG/2 ML VIAL IV ONE (08:45)
[2019-06-23] MEDS ORDERED: LIDOCAINE 2%/EPI 1:100,000 20 ML VIAL. IJ ONE (08:45)
[2019-06-23] MEDS ORDERED: BACITRACIN 50,000 UNIT in IV NORMAL SALINE 250ML 250 ML IRR ONE (09:00)
[2019-06-23] MEDS ORDERED: diphenhydrAMINE 50 MG/ML VIAL ONE (09:03)
[2019-06-23] MEDS ORDERED: diphenhydrAMINE 50 MG/ML VIAL IVP ONE (09:30)
[2019-06-23 09:49] VITALS: BP 120/60
--- NOTE | 2019-06-23 09:51 | PDOC ---
MODERATE SEDATION ASSESSMENT RISKS/ALTERNATIVES Risks/Alternatives Risks and alternatives of this type of sedation and procedure discussed with: RISK/ALTERNATIVES: Patient H & P ON CHART H & P H & P on chart and reviewed for co-morbid conditions and appropriate labs. H&P ON CHART: Yes STATUS PREG STATUS ASSESSED: N/A MEDS/ALLERGIES REVIEWED Meds/Allergies Reviewed Medications and Allergies including time and route of recently administered narcotics and sedatives. MEDS/ALLERGIES REVIEWED: Yes ASA RATING ASA RATING: II AIRWAY ASSESSMENT Airway Assessment Airway patency, oral function limitations, presence of caps, crowns, dentures, partials, and ability to extend neck assessed. AIRWAY ASSESSMENT: Yes MALLAMPATI SCORE MALLAMPATI SCORE: II PRE-SEDATION ASSESSMENT PRE-SEDATION ASSESSMENT: Yes JENIFER SHARMA MD Jun 23, 2019 09:51
[2019-06-23] MEDS ORDERED: NO ANTICOAGULANT THERAPY. MC PRN (10:00)
[2019-06-23] MEDS: oxyCODONE/APAP 5/325 1 TAB TABLET PO PRN ×5 (10:11→23:13)
[2019-06-23 10:12] VITALS: BP 105/61
--- NOTE | 2019-06-23 11:01 | RAD ---
PORTABLE CHEST 1V Clinical indications: Post pacemaker placement. COMPARISON: October 28, 2016. Findings: Bipolar atrioventricular pacemaker has been placed via left subclavian approach. No pneumothorax is seen. No acute lung infiltrate or pleural effusion or pulmonary edema or lung mass is seen. The heart size, pulmonary vasculature, mediastinum and both [place] are unremarkable. Impression: No acute radiographic abnormality is seen. Electronically signed by: Dillon Guerra MD (06/23/2019 10:58 AM) [facility]
[2019-06-23] MEDS ORDERED: ALBUTEROL SULFATE 2.5 MG/3 ML NEBU. INH PRN (11:30)
[2019-06-23] MEDS ORDERED: DICYCLOMINE HCL 10 MG CAPSULE ONE (11:43)
[2019-06-23] MEDS ORDERED: GABAPENTIN 300 MG CAPSULE. PO ONE (11:43)
[2019-06-23] MEDS ORDERED: tiZANidine 4 MG TABLET. ONE (11:43)
[2019-06-23] MEDS ORDERED: METHOCARBAMOL 500 MG TABLET PO ONE (11:45)
[2019-06-23] MEDS: ALPRAZolam 0.25 MG TABLET PO PRN ×2 (11:58→20:53)
[2019-06-23] MEDS: DICYCLOMINE HCL 10 MG CAPSULE PO SCH ×2 (11:58→20:54)
[2019-06-23] MEDS: metFORMIN 500 MG TABLET PO SCH ×2 (11:58→17:38)
[2019-06-23] MEDS: tiZANidine 4 MG TABLET. PO SCH ×2 (11:58→20:55)
[2019-06-23] MEDS: GABAPENTIN 300 MG CAPSULE. PO SCH ×2 (11:58→20:54)
[2019-06-23 15:25] VITALS: BP 157/65
[2019-06-23 19:13] VITALS: BP 141/78
[2019-06-23] MEDS ORDERED: BUDESONIDE 0.5 MG/2 ML NEBU. NEB SCH (20:00)
[2019-06-23] MEDS: LABETALOL HCL 100 MG TABLET. PO SCH (20:53)
[2019-06-23] MEDS: SOTALOL 80 MG TABLET. PO SCH (20:54)
[2019-06-23] MEDS: METHOCARBAMOL 500 MG TABLET PO SCH (20:55)
[2019-06-23] MEDS: ATORVASTATIN CALCIUM 40 MG TABLET. PO SCH ×2 (20:55→21:00)
[2019-06-23 23:04] VITALS: BP 112/63
[2019-06-24] VITALS (8 sets, daily range): BP systolic 95–158; BP diastolic 51–66
[2019-06-24] MEDS: ALPRAZolam 0.25 MG TABLET PO PRN ×2 (03:08→09:53)
[2019-06-24] MEDS: oxyCODONE/APAP 5/325 1 TAB TABLET PO PRN ×3 (03:08→12:33)
[2019-06-24] MEDS ORDERED: LEVOTHYROXINE 100 MCG TABLET PO SCH (06:00)
[2019-06-24] MEDS ORDERED: PANTOPRAZOLE 40 MG TABLET.DR. PO SCH (07:30)
[2019-06-24] MEDS: tiZANidine 4 MG TABLET. PO SCH ×2 (07:50→13:47)
[2019-06-24] MEDS: SOTALOL 80 MG TABLET. PO SCH (07:51)
[2019-06-24] MEDS: GABAPENTIN 300 MG CAPSULE. PO SCH ×2 (07:52→13:47)
[2019-06-24] MEDS: DICYCLOMINE HCL 10 MG CAPSULE PO SCH ×2 (07:52→13:47)
[2019-06-24] MEDS ORDERED: POTASSIUM CHLORIDE 10 MEQ TABLET.ER. PO SCH (08:00)
[2019-06-24] MEDS ORDERED: BUDESONIDE 0.5 MG/2 ML NEBU. NEB SCH (08:00)
[2019-06-24] MEDS ORDERED: CLOPIDOGREL BISULFATE 75 MG TABLET PO SCH (08:00)
[2019-06-24] MEDS ORDERED: hydroCHLOROthiazide 12.5 MG CAPSULE PO SCH (09:00)
[2019-06-24] MEDS ORDERED: ASPIRIN CHEWABLE 81 MG TABLET. PO SCH (09:00)
[2019-06-24] MEDS ORDERED: LOSARTAN POTASSIUM 50 MG TABLET. PO SCH (09:00)
[2019-06-24] MEDS ORDERED: OMEGA-3 FATTY ACIDS/FISH OIL 1,000 MG CAPSULE. PO SCH (09:00)
[2019-06-24] MEDS: LABETALOL HCL 100 MG TABLET. PO SCH (09:00)
[2019-06-24] MEDS ORDERED: amLODIPine BESYLATE 10 MG TABLET PO SCH (09:00)
[2019-06-24] MEDS ORDERED: MULTIVITAMIN with MINERAL TABLET. PO SCH (09:00)
[2019-06-24] MEDS ORDERED: FENOFIBRATE,MICRONIZED 134 MG CAPSULE PO SCH (09:00)
[2019-06-24] MEDS ORDERED: ISOSORBIDE MONONITRATE ER 30 MG TAB.ER.24H PO SCH (09:00)
[2019-06-24] MEDS: metFORMIN 500 MG TABLET PO SCH (09:02)
[2019-06-24] MEDS: METHOCARBAMOL 500 MG TABLET PO SCH (09:02)
--- NOTE | 2019-06-24 10:12 | RAD ---
CHEST PA LATERAL Clinical indications: One day post pacemaker implantation COMPARISON: June 23, 2019. Findings: No acute lung infiltrate or pleural effusion or pulmonary edema or lung mass or pneumothorax is seen. Bipolar atrioventricular pacemaker is again evident. The heart size, pulmonary vasculature, mediastinum and both r[place] are stable. The osseous structures appear intact. Impression: No acute radiographic abnormality is seen. Electronically signed by: Dillon Guerra MD (06/24/2019 10:09 AM) [facility]
--- NOTE | 2019-06-24 13:21 | CARD ---
MR#: [id number] Date of Study: 06/23/2019 Ordering Physician: JENIFER GOYAL, Referring Physician: JENIFER GOYAL, Tech: APPROVED REPORT PROCEDURES Insertion Dual Chamber Pacemaker 1. Successful implantation of Biotronik dual-chamber permanent pacemaker 2. Explantation of previously placed Biotronik Biomonitor loop recorder Sedation Time: 70 minutes Dose: 8.45 Gycm2 Fluoro Time: 3.7 Minutes INDICATIONS Symptomatic sick sinus syndrome with recurrent syncope and significant pauses PROCEDURE After explaining the risks, benefits, and alternative options, informed consent was obtained from the patient. The patient was brought to the cardiac catheterization lab and the left chest and shoulder were prepp ed and draped in a sterile manner. 30 mL of 2% lidocaine was infiltrated into the skin and subcutaneous tissues for local anesthesia. An incision was made over the previous scar and using blunt dissection the previously placed Biotronik loop recorder was explanted. Subsequently, an incision was made over the left infraclavicular fossa a nd using blunt dissection and cautery a pocket was created. Venous access was obtained in the left walden bclavian vein and 8 and 6 Kinyarwanda sheath inserted. A Biotronik bipolar active fixation right ventricular lead model Solia, serial #[id number] was advanced under fluoroscopy guidance and the tip was positioned in the right ventricular apex. Following this, a Biotronik bipolar active fixation right atrial lead model Solia, serial #[id number] was positioned i n the right atrial appendage under fluoroscopy guidance. The leads were secured in place and attached to a Biotronik dual-chamber permanent pacemaker generator model Eluna 8 DR-T, serial #[id number]. This was placed in the pocket that was subsequently closed in 3 layers. Hemostasis was secured. The right ventricular lead showed a sensing amplitude of 14 me was, impedance of 897 ohms and a thres hold of 0.7 V. The right atrial lead showed a sensing amplitude of 4.5 mV, impedance of 457 ohms and a threshold of 1.2 V. Patient tolerated the procedure well. There were no immediate complications. CONCLUSION Successful implantation of Biotronik dual-chamber permanent pacemaker for symptomatic sick sinus synd karena. The previously placed Biotronik biomonitor loop recorder was explanted. Signed by : Jenifer Goyal, Electronically Approved : 06/23/2019 10:02:36
--- NOTE | 2019-06-24 13:56 | PDOC3 ---
Discharge Summary Visit Information Date of Admission: Jun 23, 2019 Date of Discharge: Jun 24, 2019 Admitting Diagnosis: Symptomatic SSS, PAFIB, syncope, ILR in situ Final Diagnosis S/P PPM with ILR explantation, Symptomatic SSS, PAFIB, syncope Brief Hospital Course Allergies Allergies Coded Allergies Type Severity Reaction Last Updated Verified iodine Allergy Severe RED RASH ON SKIN AND SEVERE DYSPNEA 02/14/15 Yes Sulfa (Sulfonamide Antibiotics) Allergy Intermediate RED RASH ON SKIN AND DYSPNEA 02/14/15 Yes Iodine and Iodide Containing Produc Allergy Unknown Hives 06/23/19 Yes atorvastatin Adverse Reaction Intermediate "terrible leg pain" 06/23/19 Yes Vital Signs Vital Signs Date Time Temp Pulse Resp B/P (MAP) Pulse Ox O2 Delivery O2 Flow Rate FiO2 06/24/19 12:33 Room Air 06/24/19 11:29 98.0 86 19 113/64 (80) 98 98.0 06/23/19 09:49 2.0 Lab Results Laboratory Tests Test 06/23/19 07:35 06/23/19 11:50 06/24/19 08:01 White Blood Count 7.3 x10^3/uL (4.0-11.0) Red Blood Count 4.20 x10^6/uL (3.50-5.40) Hemoglobin 12.9 g/dL (12.0-15.5) Hematocrit 39.2 % (36.0-47.0) Mean Corpuscular Volume 93 fL (79-100) Mean Corpuscular Hemoglobin 31 pg (25-35) Mean Corpuscular Hemoglobin Concent 33 g/dL (31-37) Red Cell Distribution Width 14.0 % (11.5-14.5) Platelet Count 307 x10^3/uL (140-400) Prothrombin Time 12.8 SEC (11.7-14.0) Prothromb Time International Ratio 1.0 (0.8-1.1) Sodium Level 140 mmol/L (136-145) Potassium Level 4.5 mmol/L (3.5-5.1) Chloride Level 105 mmol/L (98-107) Carbon Dioxide Level 24 mmol/L (21-32) Anion Gap 11 (6-14) Blood Urea Nitrogen 35 mg/dL (7-20) Creatinine 1.1 mg/dL (0.6-1.0) Estimated GFR (Cockcroft-Gault) 50.2 Glucose Level 168 mg/dL (70-99) Calcium Level 9.2 mg/dL (8.5-10.1) Glucose (Fingerstick) 160 mg/dL (70-99) 121 mg/dL (70-99) Laboratory Tests Test 06/24/19 08:01 Glucose (Fingerstick) 121 mg/dL (70-99) Brief Hospital Course Ms. Adams is a 64 yo female admitted for planned PPM placement. She tolerated the procedure well without immediate complications. Repeat interrogation revealed normal functioning device. AOx3, LSCTA. VSS but her BP has been normotensive despite not having multiple BP meds. Discussed to monitor BP trend, stop labetolol as she is already on sotalol and to slowly reintroduce her BP meds as instructed. Restart ASA and plavix. She has CAD with RCA stent placement in the past and is clinically stable and recent EF and WM are normal. Left chest surgical incision intact with minimal serosanguinous drain with steristrips. LUE neurovascular status intact with sling in place. Does have surgical pain and better with percocet. BP has been normotensive without full BP regimen. WIll DC low dose labetolol as she is already is in sotalol which she is maintaining SR. Discussed BP regimen and HBPM and she will slowly reintroduce her BP meds per her BP trends. Post pacer instructions reviewed. She is ambulatory without difficulty. Follow up in office in 2 weeks for wound check. Discharge Information Condition at Discharge: Stable Follow Up: Weeks (2) Disposition/Orders: D/C to Home Scheduled Amlodipine Besylate (Amlodipine Besylate) 10 Mg Tablet, 10 MG PO DAILY for , (Reported) Entered as Reported by: DASHAWN CAMPBELL on 03/31/19 0747 Last Taken: Unknown Dose on 06/23/19 Last Action: Continued on 06/23/191126 by MARYA RAYGOZA RN Aspirin (Aspirin) 81 Mg Tab.chew, 81 MG PO DAILY for , (Reported) IndicatioN: heart/blood thinner Entered as Reported by: KELLIE DREW on 04/13/13 192 Last Taken: Unknown Dose on 06/23/19 Last Action: Continued on 06/23/191126 by MARYA RAYGOZA RN Budesonide (Pulmicort) 0.5 Mg/2 Ml Ampul.neb, 1 VIAL NEB BID for breathing, #60 (Reported) Entered as Reported by: DASHAWN CAMPBELL on 03/31/19746 Last Taken: Unknown Dose on 06/22/19 Last Action: Continued on 06/23/191126 by MARYA RAYGOZA RN Cholecalciferol (Vitamin D3) (Vitamin D3) 1,000 Unit Tab.chew, 1,000 UNIT PO DAILY for , (Reported) Entered as Reported by: DASHAWN CAMPBELL on 03/31/19746 Last Taken: Unknown Dose on 06/22/19 Last Action: Last Taken Edited on 06/23/19740 by BRANDYN SANDHU Clopidogrel Bisulfate (Clopidogrel) 75 Mg Tablet, 75 MG PO DAILYWBKFT for 30 Days, #30 Prescribed by: MARYA LOZANO on 10/30/16 1401 Last Taken: Unknown Dose on 06/23/19 Last Action: Continued on 06/23/191126 by MARYA RAYGOZA RN Dicyclomine Hcl (Dicyclomine Hcl) 10 Mg Capsule, 1 CAP PO TID for , #90 Ref 3 (Reported) Entered as Reported by: DASHAWN CAMPBELL on 03/31/19745 Last Taken: Unknown Dose on 06/22/19 Last Action: Continued on 06/23/191126 by MARYA RAYGOZA RN Evolocumab (Repatha Sureclick) 140 Mg/1 Ml Pen.injctr, 1 SYR SQ Q2WKS for for 28 Days, #2 Ref 0 (Reported) Entered as Reported by: DASHAWN CAMPBELL on 03/31/19746 Last Taken: UNKNOWN on Unknown Date & Time Last Action: Last Taken Edited on 06/23/19740 by BRANDYN SANDHU Fenofibrate (Fenofibrate) 160 Mg Tablet, 160 MG PO DAILY for , (Reported) Entered as Reported by: DASHAWN CAMPBLEL on 03/31/19746 Last Taken: Unknown Dose on 06/23/19 Last Action: Converted on 06/23/191126 by MARYA RAYGOZA RN Gabapentin (Gabapentin ) 300 Mg Capsule, 300 MG PO TID for NEUROGENIC PAIN, (Reported) Entered as Reported by: BRANDYN SANDHU on 06/23/19740 Last Taken: Unknown Dose on 06/22/19 Last Action: Continued on 06/23/191126 by MARYA RAYGOZA RN Hydrochlorothiazide (Hydrochlorothiazide Capsule ) 12.5 Mg Capsule, 12.5 MG PO DAILY for DIURETIC, Ref 0 (Reported) Entered as Reported by: DASHAWN CAMPBELL on 03/31/19746 Last Taken: Unknown Dose on 06/22/19 Last Action: Continued on 06/23/191126 by MARYA RAYGOZA RN Isosorbide Mononitrate (Isosorbide Mononitrate Er) 30 Mg Tab.er.24h, 30 MG PO DAILY for 30 Days, #30 Prescribed by: MARYA LOZANO on 10/30/16 1401 Last Taken: Unknown Dose on 06/23/19 Last Action: Continued on 06/23/191126 by MARYA RAYGOZA RN Levothyroxine Sodium (Synthroid) 200 Mcg Tablet, 1 TAB PO DAILY, #90 Ref 1 Prescribed by: MARYA LOZANO on 10/30/16 1405 Last Taken: Unknown Dose on 06/23/19 Last Action: Converted on 06/23/191126 by MARYA RAYGOZA RN Losartan Potassium (Losartan Potassium) 100 Mg Tablet, 100 MG PO DAILY for HYPERTENSION, (Reported) Entered as Reported by: DASHAWN CAMPBELL on 03/31/19746 Last Taken: Unknown Dose on 06/23/19 Last Action: Converted on 06/23/191126 by MARYA RAYGOZA RN Metformin Hcl (Metformin Hcl) 500 Mg Tablet, 500 MG PO BIDWMEALS for ANTI- DIABETIC, Ref 0 (Reported) Entered as Reported by: DASHAWN CAMPBELL on 03/31/19746 Last Taken: Unknown Dose on 06/22/19 Last Action: Continued on 06/23/191126 by MARYA RAYGOZA RN Methocarbamol (Robaxin-750) 750 Mg Tablet, 500 MG PO BID for muscle relaxer, (Reported) Entered as Reported by: BRANDYN SANDHU on 06/23/19 0741 Last Taken: Unknown Dose on 06/22/19 Last Action: Continued on 06/23/191126 by MARYA RAYGOZA RN Multivitamin (Daily Value) 1 Each Tablet, 1 TAB PO DAILY for for 30 Days, #30 Ref 0 (Reported) Entered as Reported by: DASHAWN CAMPBELL on 03/31/19746 Last Taken: Unknown Dose on 06/22/19 Last Action: Converted on 06/23/191126 by MARYA RAYGOZA RN Rayle-3/Dha/Epa/Fish Oil (Fish Oil Rayle-3 Softgel) 1 Each Capsule.dr, 1 EACH PO DAILY for , (Reported) Indication: cholesterol Entered as Reported by: SATYA RODRIGUEZ on 11/04/13 1141 Last Taken: Unknown Dose on 06/22/19 Last Action: Converted on 06/23/191126 by MARYA RAYGOZA RN Pantoprazole Sodium (Protonix ) 40 Mg Tablet.dr, 40 MG PO DAILY for , (Reported) IndicatioN: stomach Entered as Reported by: SATYA RODRIGUEZ on 11/04/13 1141 Last Taken: Unknown Dose on 06/23/19 Last Action: Continued on 06/23/191126 by MARYA RAYGOZA RN Potassium Chloride (Potassium Chloride) 10 Meq Tablet.er, 10 MEQ PO DAILY for , (Reported) Entered as Reported by: DASHAWN CAMPBELL on 03/31/19 0747 Last Taken: Unknown Dose on 06/23/19 Last Action: Converted on 06/23/191126 by MARYA RAYGOZA RN Rosuvastatin Calcium (Crestor) 40 Mg Tablet, 40 MG PO HS for FOR CHOLESTEROL, #30 Ref 0 (Reported) Entered as Reported by: DASHAWN CAMPBELL on 03/31/19 0747 Last Taken: Unknown Dose on 06/23/19 Last Action: Converted on 06/23/191126 by MARYA RAYGOZA RN Sotalol Hcl (Sotalol) 80 Mg Tablet, 80 MG PO BID for , (Reported) Indication: heart/blood pressure Entered as Reported by: SATYA RODRIGUEZ on 11/04/13 1141 Last Taken: Unknown Dose on 06/23/19 Last Action: Continued on 06/23/191126 by MARYA RAYGOZA RN Tizanidine Hcl (Tizanidine Hcl) 4 Mg Tablet, 1 TAB PO TID for muscle, #90 (Reported) Entered as Reported by: DASHAWN CAMPBELL on 03/31/19 0746 Last Taken: Unknown Dose on 06/22/19 Last Action: Continued on 06/23/191126 by MARYA RAYGOZA RN Scheduled PRN Albuterol Sulfate (Proair Hfa Inhaler) 8.5 Gm Hfa.aer.ad, 2 PUFF INH PRN Q6HRS PRN for SHORTNESS OF BREATH, #1 Ref 0 Prescribed by: COURTNEY WALTON on 10/16/15 1137 Last Taken: Unknown Dose on 06/22/19 Last Action: Continued on 06/23/191126 by MARYA RAGYOZA RN Alprazolam (Xanax) 0.25 Mg Tablet, 0.25 MG PO PRN Q6HRS PRN for ANXIETY / AGITATION, Ref 0 (Reported) Entered as Reported by: BRANDYN SANDHU on 06/23/19740 Last Taken: Unknown Dose on 06/22/19 Last Action: Continued on 06/23/191126 by MARYA RAYGOZA RN Oxycodone HCl/Acetaminophen (Percocet 5-325 mg Tablet) 1 Each Tablet, 1 EACH PO PRN Q4HRS PRN for PAIN for 7 Days, #20 Ref 0 Prescribed by: BRYAN CHRISTIAN on 06/24/19 1547 Discontinued Medications Labetalol Hcl (Labetalol Hcl) 100 Mg Tablet, 1 TAB PO BID for beta genevieve, #60 Ref 5 (Reported) Entered as Reported by: BRANDYN SANDHU on 06/23/19740 Last Taken: Unknown Dose on 06/23/19 Last Action: Continued on 06/23/191126 by MARYA RAYGOZA RN Patient Instructions Patient Instructions Must know & what to expect after device implant: 1. Your surgical dressing should be removed prior to discharge from the hospital, but allow the steri- strips to fall off naturally. 2. Activity restrictions: DO NOT raise arm above shoulder level, lift anything heavier than a gallon of milk, and no push or pull motions such as vacuuming/lawn mowing, no swinging motions (golf), etc for 4 weeks. 3. It is OK to use a cell phone or other electronic devices just be sure you do not store it in a breast pocket on the side where the device was placed. 4. Device will be interrogated prior to your discharge from the hospital and then every 3 months for defibrillators and every 6 months for pacemakers. You may be asked to have your device checked remotely from home as well, but this will depend on your particular physicians preference. 5. You may remove the arm immobilizer the day after device placement. Wear the arm immobilizer/splint at night (during sleep times) for 2 week to prevent unintended arm movement that can cause lead dislodgement. 6. Do not drive for one week as the task of driving may lead to unintended arm motion that may cause lead dislodgement. The seatbelt will also rub against the incision site & cause irritation. 7. It is our recommendation that you utilize Tylenol at home for pain control. You need to call our office if you are having uncontrollable pain at the incision site. 8. Keep your incision clean and dry. It is OK to shower. DO NOT submerge in bath, pool, or hot tub, until cleared by your doctor, as this could lead to increase risk of infection.. It is OK to use regular soap just do not sc rub the incision site. Water spray from shower should not directly hit the incision. Be sure to blot dry not rub. 9. Inspect your incision daily. If you notice any increased redness, swelling, or drainage, or if you start running a fever, call the office immediately. The number is [phone]. 10. For women, if you need to protect against irritation from the bra straps, you can place a piece of gauze over the incision site for cushion. Please be sure to tape it loosely to allow air to the site & remove the gauze when you remove the bra. 11. Be sure to carry your device identification information card in your lidya t/purse at all times. 12. It is OK to go through security at the airport with your device, but be sure to let the TSA know prior to proceeding as the security settings change depending on varying factors. Please do whatever is requested by security at that time. 13. Some of the newer devices may be MRI compatible but, currently, the use of these devices is not widespread, so you likely will not be able to have an MRI. Please clarify this with your physician. If at any time, you feel lightheaded or dizzy/faint, stop what you are doing & lie down immediately. If you are driving, get to the side of the road quickly, turn your car off & call 911 on your cell phone. DO NOT continue to drive as this may cause an accident that seriously injures yourself &/or others. Call the office at [phone] for any questions or concerns. BRYAN CHRISTIAN APRN Jun 24, 2019 13:56
[2019-06-24] MEDS ORDERED: OXYC-325 PO (15:47)
--- NOTE | 2019-06-24 16:08 | NUR ---
Discharge Note: [facility] [address] Discharge instructions and discharge home medications reviewed with Patient and a copy given. All questions have been answered and understanding verbalized. The following instructions and handouts were given: discharge instructions, prescription, pacemaker info, sick sinus syndrome info, smoking cessation info. Discontinued lines and drains: Peripheral IV intact. Patient discharged to Home or Self Care with Friend via Wheelchair at 1608.
== END 2019-06-24 16:08 | disposition home or self-care (01) ==
LOC: CCL 06:56 → 1 WEST ICU 07:49
PROVIDERS: ADMIT Internal Medicine Cardiovascular Disease; ATTEND Internal Medicine Cardiovascular Disease
DX: I49.5 Sick sinus syndrome (principal); R55 Syncope and collapse; I48.0 Paroxysmal atrial fibrillation
CPT/HCPCS: 33208; 33286; 36415; 71045; 71046; 80048; 82962; 85027; 85610; 93005; 94640; 94760; 96365; 96375; C1785; C1898; G0378; G0379; J0690; J0696; J1200; J2250; J3010; J3490; J7050; J7626; 33284; J7030

== ENCOUNTER → 2019-11-16 | Outpatient (CLI) | payer MEDICARE ==
[2019-06-24 15:05] VITALS: BP 158/66
[~2019-11-16] MED LIST changes: +ALPR0.25 PO; +GABA300C18 PO; +LABE100T5 PO; +METH-38 PO; +OXYC-325 PO; -WARF-78 PO; +WARF5TAB2 PO; -ceFAZolin SODIUM IV Push 1 GM VIAL. IVP ONE
--- NOTE | 2019-11-16 11:36 | RAD ---
DATE: 11/16/2019 11:01 AM EXAM: BREAST ultrasound LEFT, DIGITAL DIAGNOSTIC BILATERAL mammogram HISTORY: 64-year-old woman presents for imaging evaluation of right breast bruising (since resolved) and follow-up imaging of a prior screening recall in the left breast. COMPARISON: Bilateral mammogram of 04/24/2018 TECHNIQUE: Bilateral CC and MLO views of the breasts were performed. Bilateral breast tomosynthesis was performed in CC and MLO projections. This study was interpreted with the benefit of Computerized Aided Detection (CAD). Targeted ultrasound of the left breast was also performed. FINDINGS: Breast Density: SCATTERED The breast parenchyma shows scattered fibroglandular densities. Breast parenchyma level B The right mammogram shows stable benign scattered calcifications. No developing mass, suspicious calcification or architectural distortion in the right breast.. Left mammogram shows interval decrease conspicuity and size of a nodule in the left breast at the approximate 1:00 position 6 to 7 cm from the nipple. Targeted ultrasound of the left breast identifies a 4 mm oval parallel orientation circumscribed nodule at the 1:00 position 7 cm from the nipple with no internal vascularity that likely correlates with the mammographic finding initially recalled from screening. Interval decrease in size is compatible with a benign etiology. IMPRESSION: No mammographic evidence of malignancy. BI-RADS CATEGORY: 2 BENIGN FINDING(S) RECOMMENDED FOLLOW-UP: 12M 12 MONTH FOLLOW-UP Annual screening mammography is recommended, unless clinically indicated sooner based on symptoms or change in physical exam. PQRS compliance statement: Patient information was entered into a reminder system with a target due date 11/16/2020 for the next mammogram. Mammography is a sensitive method for finding small breast cancers, but it does not detect them all and is not a substitute for careful clinical examination. A negative mammogram does not negate a clinically suspicious finding and should not result in delay in biopsying a clinically suspicious abnormality. "Our facility is accredited by the [employer] Mammography Program."
== END | disposition home or self-care (01) ==
LOC: MAMMO 11:08
PROVIDERS: ATTEND Family Medicine
DX: R92.2 Inconclusive mammogram (principal); N63.21 Unspecified lump in the left breast, upper outer quadrant
CPT/HCPCS: 76641; 77066

== ENCOUNTER → 2020-01-25 | Outpatient (CLI) | payer MEDICARE ==
[2019-06-24 15:05] VITALS: BP 158/66
[~2020-01-25] MED LIST changes: +REGADENOSON 0.4 MG/5 ML DISP.SYRIN. IV ONE
--- NOTE | 2020-01-25 16:03 | RAD ---
MR#: [id number] Date of Study: 01/25/2020 Ordering Physician: JENIFER SHARMA, Referring Physician: TATI DUONG Tech: LORI [place] APPROVED REPORT Test Type: Pharmacological Stress Nurse/Tech: Chuyita Fernandez R.N. Test Indications: C/p, CAD Cardiac History: cardiac stent, htn,PPM, smoker, DM Medications: See Electronic Medical Record Medical History: See Electronic Medical Record Resting EC % paced64 100% paced Resting Heart Rate: 64 bpm Resting Blood Pressure: 140/56mmHg Pretest Chest Pain: Atypical angina Nurse/Tech Notes S1S2, lungs CTA, c/o pslight chest ache in the center, scale 05/22 Consent: The procedure was explained to the patient in lay terms. Informed consent was witnessed. Max eout was entered into [employer]. History and Stress Test performed by RT Jun (R) (N) Pharm. Details There was low-level exercise performed along with the infusion Stress Symptoms SOA, stomach ache POST EXERCISE Reason for Termination: Infusion complete Max HR: 75 bpm Max Blood Pressure: 124/45mmHg Blood Pressure response to exercise: Normal blood pressure response during stress. Heart Rate response to exercise: wnl Chest Pain: No. no increase pain from baseline of 05/22 Arrhythmia: No. ST Change: No. INTERPRETATION Stress EKG Conclusion: Baseline EKG showed atrial paced rhythm. Nondiagnostic changes at peak stress . No arrhythmias. Imaging Protocol IMAGE PROTOCOL: Rest Tc-99m/stress Tc-99m 1 day Rest: Stress: Viability: Radiopharm.Tc99m [id number] Sestamibi Dose10.5mCi 31.5mCi Duration 15min. 10min. Img Date 01/25/2020 01/25/2020 Inj-Img [id number]. 60min. Rest Admin Site:IV - Right AntecubitalAdministrator:ANIL Loyd, ARRT (R)(N) Stress Admin Site: IV - Right AntecubitalAdministrator: RT Emma Barahona)(N) STRESS DATA End Diast. Vol.74.0mlAv. Heart Rate65.0bpm End Syst. Vol.17.0mlCO Index BSA0.0L/min Myocardial Jbwu212.0gEject. Fptsufej71.0% Stress Rates Pk. Fill Rate2.74EDV/secLVtime Pk. Fill 205.50msec Pk. Empty Rate4.39ESV/secLVtime Pk. Vmctv557.92msec 1/3 Pk. Fill1.26EDV/sec Stress Scores Regional WT2.00Summed WT11.00 Regional WM0.00Summed WM0.00 LV Perfusion Scintigraphic images showed a very small reversible defect involving the basal lateral wall consisten t with ischemia. No other fixed or reversible defects were seen. Wall Motion Normal left ventricle systolic function with ejection fraction calculated at 69%. LV Perf. Quant 17 Seg. SSS4.00 17 Seg. SRS3.00 17 Seg. SDS1.00 Stress Defect Extent (% LAD)0.00Rest Defect Extent (% LAD)0.00Rev. Defect Extent (% LAD)0.00 Stress Defect Extent (% LCX) 58.80Rest Defect Extent (% LCX)0.00Rev. Defect Extent (% LCX)13.80 Stress Defect Extent (% RCA)0.00Rest Defect Extent (% RCA)0.00Rev. Defect Extent (% RCA)0.00 Stress Defect Extent (% NITIN)10.20Rest Defect Extent (% NITIN)0.00Rev. Defect Extent (% NITIN)2.40 Conclusion 1. Regadenoson cardioisotope stress test showed very small amount of basal lateral wall ischemia. 2. Normal left ventricular systolic function with ejection fraction calculated at 69%. 3. Low risk for cardiac events. Signed by : Jenifer Sharma, Electronically Approved : 01/25/2020 16:03:39
== END | disposition home or self-care (01) ==
LOC: NM 08:59
PROVIDERS: ATTEND Internal Medicine Cardiovascular Disease
DX: I25.10 Atherosclerotic heart disease of native coronary artery without angina pectoris (principal); I10 Essential (primary) hypertension; Z95.5 Presence of coronary angioplasty implant and graft; Z87.891 Personal history of nicotine dependence
CPT/HCPCS: 78452; 93017; A9500; J2785

== ENCOUNTER → 2020-08-03 | Outpatient (CLI) | payer MEDICARE ==
[2019-06-24 15:05] VITALS: BP 158/66
[~2020-08-03] MED LIST changes: +AMLO-187 PO; -AMLO10TA8 PO; -ISOS30TA4 PO; +ISOS30TA68 PO; -NABU750T PO; +NABU750T7 PO; -REGADENOSON 0.4 MG/5 ML DISP.SYRIN. IV ONE
--- NOTE | 2020-08-03 13:59 | RAD ---
MR#: [id number] Date of Study: 08/03/2020 Ordering Physician: JENIFER SHARMA, Referring Physician: JENIFER SHARMA, Tech: Mustapha Leung MBA, RDMS, RVT, RDCS, RTR APPROVED REPORT Patient Location: OUT-PATIENT Indications Rest Pain:Bilaterally VELOCITY AND DOPPLER WAVEFORM ANALYSIS RIGHT cm/secWaveformSeverity LEFT cm/secWaveform Severity dCFA 147.0BiphasicdCFA 154.0Biphasic Prof Fem Art. 74.0BiphasicProf Fem Art. 54.0Biphasic Fem Art Prox. 193.0BiphasicFem Art Prox. 253.0Biphasic Fem Art Mid. 223.0BiphasicFem Art Mid. 167.0Biphasic Fem Art Dist. 145.0BiphasicFem Art Dist. 169.0Biphasic Pop Art(Fossa) 151.0BiphasicPop Art(AK) 122.0Biphasic PHYSICAL THER Prox. 97.0BiphasicPTA Prox. 100.0Biphasic PHYSICAL THER Dist. 88.0BiphasicPTA Dist. 107.0Biphasic Per Art Mid. 63.0BiphasicPer Art Mid. 58.0Biphasic IVETH Prox. 80.0BiphasicATA Prox. 71.0Biphasic DPA 88BiphasicDPA 76Biphasic Findings Grayscale images the bilateral lower extremity arterial vessels demonstrate mild diffuse atherosclero sis On the right side there are mostly biphasic waveforms with mild approximately less than 50% stenosis involving the SFA. There is three-vessel runoff below the knee. On the left side there is likely a 50% stenosis involving the SFA. No critical high-grade stenosis i dentified in the below-knee vessels. Critical Notification Critical Value: No <Conclusion> 1. 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 There is bilate ral three-vessel runoff. Signed by : Martin Lilly, Electronically Approved : 08/03/2020 13:58:33
--- NOTE | 2020-08-03 15:36 | CARD ---
MR#: [id number] Date of Study: 08/03/2020 Ordering Physician: JENIFER SHARMA, Referring Physician: JENIFER SHARMA Tech: Yocasta Li RDCS APPROVED REPORT EXAM: Two-dimensional and M-mode echocardiogram with Doppler and color Doppler. Other Information Quality : Fair Rhythm : Atrial Fibrillation INDICATION Cardiac Disease: CAD Pacemaker RISK FACTORS Smoking 2D DIMENSIONS RVDd2.4 (2.9-3.5cm)Left Atrium(2D)3.6 (1.6-4.0cm) IVSd1.8 (0.7-1.1cm)Aortic Root(2D)2.9 (2.0-3.7cm) LVDd4.4 (3.9-5.9cm)LVOT Diameter2.1 (1.8-2.4cm) PWd1.0 (0.7-1.1cm)LVDs3.9 (2.5-4.0cm) FS (%) 25.0 %SV19.0 ml LVEF(%)50.0 (>50%) Aortic Valve AoV Peak Jason.106.7cm/sAoV VTI19.9cm AO Peak GR.4.6mmHgLVOT Peak Jason.80.4cm/s LVOT VTI 18.67cmAO Mean GR.3mmHg NANETTE (VMAX)2.34kt3XNZ (VTI)3.39cm2 Mitral Valve MV E Olxlwkva723.7cm/sMV DECEL DHQQ296sv MV LMH50xfQKP (PHT)5.75cm2 TDI E/Lateral E'27.2E/Medial E'27.7 Pulmonary Vein S1 Ozagekux28.4cm/sD2 Gagbgfmx18.9cm/s LEFT VENTRICLE The left ventricle is normal size. There is normal left ventricular wall thickness. The left ventricu lar systolic function is normal. The Ejection Fraction is 60%. There is normal LV segmental wall kaylie on. Transmitral Doppler flow pattern is Grade I-abnormal relaxation pattern. RIGHT VENTRICLE The right ventricle is normal size. The right ventricular systolic function is normal. There is a pac emaker lead in the right ventricle. ATRIA The left atrium size is normal. The right atrium size is normal. A pacemaker is seen in the right atr ium consistent with history. The interatrial septum is intact with no evidence for an atrial septal d efect or patent foramen ovale as noted on 2-D or Doppler imaging. AORTIC VALVE The aortic valve is not well visualized but appears to function normally by Doppler interrogation. Do ppler and Color Flow revealed no significant aortic regurgitation. There is no significant aortic cristina vular stenosis. MITRAL VALVE The mitral valve is calcified but opens well. Mitral annular calcification is mild. There is no evide nce of mitral valve prolapse. There is no mitral valve stenosis. Doppler and Color-flow revealed trac e mitral regurgitation. TRICUSPID VALVE The tricuspid valve is normal in structure and function. Doppler and Color Flow revealed no tricuspid valve regurgitation noted. There is no tricuspid valve stenosis. PULMONIC VALVE The pulmonic valve is not well visualized. Doppler and Color Flow revealed trace pulmonic valvular re gurgitation. There is no pulmonic valvular stenosis. GREAT VESSELS The aortic root is normal in size. The ascending aorta is normal in size. The IVC is normal in size a nd collapses >50% with inspiration. PERICARDIAL EFFUSION There is no evidence of significant pericardial effusion. Critical Notification Critical Value: No <Conclusion> The left ventricular systolic function is normal. The Ejection Fraction is 60%. There is normal LV segmental wall motion. Transmitral Doppler flow pattern is Grade I-abnormal relaxation pattern. Pacer lead noted RA/RV. Trace mitral regurgitation. There is no evidence of significant pericardial effusion. Signed by : Jenifer Sharma, Electronically Approved : 08/03/2020 15:36:27
== END ==
LOC: US 09:46
PROVIDERS: ATTEND Internal Medicine Cardiovascular Disease
DX: I34.0 Nonrheumatic mitral (valve) insufficiency (principal); I70.203 Unspecified atherosclerosis of native arteries of extremities, bilateral legs; I25.10 Atherosclerotic heart disease of native coronary artery without angina pectoris; Z95.0 Presence of cardiac pacemaker
CPT/HCPCS: 93306; 93925

== ENCOUNTER → 2020-10-14 | Outpatient (CLI) | payer MEDICARE ==
[2019-06-24 15:05] VITALS: BP 158/66
[~2020-10-14] MED LIST changes: +NABU750T11 PO; -NABU750T7 PO
--- NOTE | 2020-10-14 11:47 | KCIC ---
EXAM: XR FOOT_RIGHT 3 VIEWS 10/14/2020 10:30 AM CLINICAL INDICATION: Right foot pain and bruising, and water and fell 11 days ago COMPARISON: None TECHNIQUE: 4 views of the right foot FINDINGS: There is a tiny dorsal talar avulsion fracture with mild overlying soft tissue swelling or joint effusion. No other fracture or malalignment. Joint spaces are maintained. There is an accessory navicular. IMPRESSION: Tiny dorsal talar avulsion fracture with mild overlying soft tissue swelling and small j oint effusion. Electronically signed by: Gloria Yarbrough MD (10/14/2020 11:45 AM) [id number]
== END ==
LOC: KCIC 10:26
PROVIDERS: ATTEND Family Medicine
DX: S92.151A Displaced avulsion fracture (chip fracture) of right talus, initial encounter for closed fracture (principal); M25.471 Effusion, right ankle; X58.XXXA Exposure to other specified factors, initial encounter; Y93.89 Activity, other specified; Y92.89 Other specified places as the place of occurrence of the external cause; Y99.8 Other external cause status
CPT/HCPCS: 73630

== ENCOUNTER → 2021-02-08 | Outpatient (CLI) | payer MEDICARE ==
[2019-06-24 15:05] VITALS: BP 158/66
[~2021-02-08] MED LIST changes: +REGADENOSON 0.4 MG/5 ML DISP.SYRIN. IV ONE
--- NOTE | 2021-02-08 12:26 | RAD ---
MR#: [id number] Date of Study: 02/08/2021 Ordering Physician: JENIFER SHARMA, Referring Physician: TATI DUONG Tech: LORI [place] APPROVED REPORT Test Type: Pharmacological Stress Nurse/Tech: Adelaide Rangel R.N. Test Indications: cad Cardiac History: [place] 2011, stent x 1, htn, pacemaker, dm, copd Medications: See Electronic Medical Record Medical History: See Electronic Medical Record Resting ECG: paced Resting Heart Rate: 76 bpm Resting Blood Pressure: 167/69mmHg Pretest Chest Pain: No chest pain Nurse/Tech Notes lungs cta, heart tones regular Consent: The procedure was explained to the patient in lay terms. Informed consent was witnessed. Max eout was entered into [employer]. History and Stress Test performed by LORI [place] Stress Symptoms No chest pain or symptoms. POST EXERCISE Reason for Termination: Infusion complete Max HR: 111 bpm Max Blood Pressure: 136/51mmHg Chest Pain: No. Arrhythmia: No. INTERPRETATION Stress EKG Conclusion: The resting EKG shows an atrial paced rhythm. The stress EKG shows no significant changes from baseline. No EKG evidence of stress-induced ischemia. Imaging Protocol IMAGE PROTOCOL: Rest Tc-99m/stress Tc-99m 1 day Rest: Stress: Viability: Radiopharm.Tc99m CqxrhvbgrGv53s Sestamibi Tnpc71sFw 32mCi Duration 15min. 13min. Img Date 02/08/2021 02/08/2021 Inj-Img Mgzu89czx. 60min. Rest Admin Site:IV - Right AntecubitalAdministrator:RT Connor (R)(N) Stress Admin Site: IV - Right AntecubitalAdministrator: LORI [place] STRESS DATA End Diast. Vol.46.0mlLVEDV index BSA26.0ml End Syst. Vol.4.0mlLVESV index BSA2.0ml Myocardial Mass79.0gEject. Htxnvfaj65.0% Stress Scores Regional WT1.00Summed WT5.00 Regional WM0.00Summed WM0.00 LV Perfusion The stress scans show no significant defects. The rest scans showed no significant defects. Nuclear imaging shows no reversible ischemia or infarct. Wall Motion Intact LV systolic function with an ejection fraction of greater than 70%. LV Perf. Quant 17 Seg. SSS0.00 17 Seg. SRS0.00 17 Seg. SDS0.00 Stress Defect Extent (% LAD)0.00Rest Defect Extent (% LAD)0.00Rev. Defect Extent (% LAD)0.00 Stress Defect Extent (% LCX) 0.00Rest Defect Extent (% LCX)0.00Rev. Defect Extent (% LCX)0.00 Stress Defect Extent (% RCA)0.00Rest Defect Extent (% RCA)0.00Rev. Defect Extent (% RCA)0.00 Stress Defect Extent (% NITIN)0.00Rest Defect Extent (% NITIN)0.00Rev. Defect Extent (% NITIN)0.00 Conclusion 1. No EKG evidence of stress-induced ischemia. 2. Nuclear imaging shows no reversible ischemia or infarct. 3. Normal left ventricular systolic function with an ejection fraction of greater than 70%. 4. Low risk Lexiscan nuclear stress test. Signed by : Lalo Velásquez MD Electronically Approved : 02/08/2021 12:26:22
== END ==
LOC: NM 11:35
PROVIDERS: ATTEND Internal Medicine Cardiovascular Disease
DX: I25.10 Atherosclerotic heart disease of native coronary artery without angina pectoris (principal)
CPT/HCPCS: 78452; 93017; A9500; J2785

== ENCOUNTER → 2021-08-15 | Outpatient (CLI) | payer MEDICARE ==
[2019-06-24 15:05] VITALS: BP 158/66
[~2021-08-15] MED LIST changes: +CYCL10TA19 PO; -CYCL10TA2 PO; -REGADENOSON 0.4 MG/5 ML DISP.SYRIN. IV ONE; +TIZA-75 PO; -TIZA4TAB2 PO
--- NOTE | 2021-08-15 16:16 | CARD ---
MR#: [id number] Date of Study: 08/15/2021 Ordering Physician: JENIFER SHARMA, Referring Physician: JENIFER SHARMA Tech: Alisha Hernández [facility] APPROVED REPORT EXAM: Two-dimensional and M-mode echocardiogram with Doppler and color Doppler. Other Information Quality : Technically LimitedHR: 65bpm Rhythm : NSR INDICATION Abnormal ECG COPD Dyspnea RISK FACTORS Hypertension Obesity Smoking 2D DIMENSIONS RVDd2.5 (2.9-3.5cm)Left Atrium(2D)3.0 (1.6-4.0cm) IVSd1.1 (0.7-1.1cm)Aortic Root(2D)3.2 (2.0-3.7cm) LVDd4.4 (3.9-5.9cm)LVOT Diameter2.1 (1.8-2.4cm) PWd1.4 (0.7-1.1cm)LVDs2.1 (2.5-4.0cm) FS (%) 51.2 %SV70.8 ml LVEF(%)82.6 (>50%) Aortic Valve AoV Peak Jason.102.0cm/sAoV VTI22.4cm AO Peak GR.4.2mmHgLVOT Peak Jason.88.2cm/s AO Mean GR.2mmHgAVA (VMAX)3.09cm2 Mitral Valve MV E Vobcdsbi29.2cm/sMV DECEL GXBS881gy MV A Svuqzjyc66.5cm/sE/A Ratio0.6 Pulmonary Valve PV Peak Pucfziza64.2cm/s LEFT VENTRICLE The left ventricle is normal size. There is mild concentric left ventricular hypertrophy. The left ve ntricular systolic function is normal. Estimated ejection fraction 60-65%. There is normal LV segmen teresa wall motion. Transmitral Doppler flow pattern is Grade I-abnormal relaxation pattern. RIGHT VENTRICLE The right ventricle is normal size. There is normal right ventricular wall thickness. The right ventr icular systolic function is normal. ATRIA The left atrium size is normal. The right atrium size is normal. The interatrial septum is intact wit h no evidence for an atrial septal defect or patent foramen ovale as noted on 2-D or Doppler imaging. AORTIC VALVE The aortic valve is mildly thickened but opens well. Doppler and Color Flow revealed no significant a ortic regurgitation. There is no significant aortic valvular stenosis. MITRAL VALVE The mitral valve is normal in structure and function. There is no evidence of mitral valve prolapse. There is no mitral valve stenosis. Doppler and Color Flow revealed no mitral valve regurgitation note d. TRICUSPID VALVE The tricuspid valve is normal in structure and function. Doppler and Color Flow revealed no tricuspid valve regurgitation noted. There is no tricuspid valve stenosis. GREAT VESSELS The aortic root is normal in size. The ascending aorta is normal in size. The IVC is normal in size a nd collapses >50% with inspiration. PERICARDIAL EFFUSION There is no evidence of significant pericardial effusion. Critical Notification Critical Value: No <Conclusion> The left ventricular systolic function is normal. Estimated ejection fraction 60-65%. There is normal LV segmental wall motion. Pacer wire noted RA/RV. Transmitral Doppler flow pattern is Grade I-abnormal relaxation pattern. There is no evidence of significant pericardial effusion. Signed by : Jenifer Sharma, Electronically Approved : 08/15/2021 16:15:44
== END ==
LOC: ECHO 13:54
PROVIDERS: ATTEND Internal Medicine Cardiovascular Disease
DX: I35.1 Nonrheumatic aortic (valve) insufficiency (principal); I51.7 Cardiomegaly; I25.10 Atherosclerotic heart disease of native coronary artery without angina pectoris; J44.9 Chronic obstructive pulmonary disease, unspecified
CPT/HCPCS: 93306; C8929

== ENCOUNTER → 2021-08-15 | Outpatient (CLI) | payer MEDICARE ==
[2019-06-24 15:05] VITALS: BP 158/66
[~2021-08-15] MED LIST changes: +APIX5TAB PO; +ESCITALOPRAM OX10 MG PO; +LEVO175T5 PO; +MECL-75 PO; +TRAZ-123 PO
--- NOTE | 2021-08-15 16:32 | RAD ---
CT LOW DOSE LUNG SCREEN INDICATION: SMOKER X 50 YEARS, 1 PPD, NO FAMILY H/O CANCER. History of nicotine dependence. COMPARISON STUDY: None. TECHNIQUE: Unenhanced axial images were obtained through the lungs and upper abdomen using low dose technique. Coronal and sagittal multiplanar reformatted images were also obtained. PQRS compliance statement: One or more of the following individualized dose reduction techniques were utilized for this examinat ion: 1. Automated exposure control 2. Adjustment of the mA and/or kV according to patient size 3. Use of iterative reconstruction technique FINDINGS: Left pectoral pacemaker. Lung Nodules: There are a couple of pulmonary nodules with inside technical sales representative nodules as follows: Right u pper lobe 7 mm solid noncalcified nodule (series 2 image 73). Right upper lobe 10 mm ground glass nod ule (image 105). Lungs and Airways: No pulmonary mass or consolidation. Normal central airways. Pleura: Normal pleural spaces. Heart and Mediastinum: The visualized portions of the thyroid gland are normal in size and attenuatio n. No axillary or supraclavicular lymphadenopathy. No mediastinal, hilar or retrocrural lymphadenopat hy. Normal cardiac size. Coronary artery atherosclerotic disease. Atherosclerosis of the thoracic aor ta and branch vessels. Abdomen: Cholecystectomy. Bones and Soft Tissues: Degenerative changes of the spine, with severe degenerative disc disease at T 7-8, T8-9, and T9-10. Multilevel Schmorl's node deformities. IMPRESSION: 1. There are a couple indeterminate pulmonary nodules, most notable a 7 mm noncalcified right upper l obe nodule. Lung-RADS Category: 3 Management Recommendation: Follow up low-dose chest CT in 6 months. 2. Coronary artery atherosclerotic disease. Electronically signed by: René Loyd MD (08/15/2021 4:29 PM) [facility]
== END ==
LOC: CT 14:37
PROVIDERS: ATTEND Family Medicine
DX: R91.8 Other nonspecific abnormal finding of lung field (principal); I25.10 Atherosclerotic heart disease of native coronary artery without angina pectoris; I70.0 Atherosclerosis of aorta; M51.34 Other intervertebral disc degeneration, thoracic region; M51.44 Schmorl's nodes, thoracic region; Z90.49 Acquired absence of other specified parts of digestive tract; F17.200 Nicotine dependence, unspecified, uncomplicated
CPT/HCPCS: 71271

== ENCOUNTER → 2021-09-04 | Outpatient (CLI) | payer MEDICARE ==
[~2021-09-04] VITALS: Ht 157.5 cm; Wt 81.0 kg
[2021-09-04] VITALS (10 sets, daily range): BP systolic 134–158; BP diastolic 68–77
[~2021-09-04] MED LIST changes: +FAMOTIDINE 20 MG/2 ML VIAL IVP ONE; +FAMOTIDINE 20 MG/2 ML VIAL ONE; +HEPARIN for IV BOLUS 10,000 UNIT/10 ML VIAL. IART ONE; +HEPARIN for IV BOLUS 10,000 UNIT/10 ML VIAL. ONE; +IODIXANOL 320 MG/ML 100 ML VIAL. IART ONE; +IODIXANOL 320 MG/ML 100 ML VIAL. ONE; +IV 1/2 NORMAL SALINE 1,000 ML IV SCH; +LIDOCAINE 1% PF 2 ML VIAL. INJ ONE; +LIDOCAINE 1% PF 2 ML VIAL. ONE; +MIDAZOLAM HCL/PF 2 MG/2 ML VIAL. IV ONE; +MIDAZOLAM HCL/PF 2 MG/2 ML VIAL. ONE; +NITROGLYCERIN 200 MCG/2 ML SYRINGE FOR CATH/VASC LAB. IART ONE; +NITROGLYCERIN 200 MCG/2 ML SYRINGE FOR CATH/VASC LAB. ONE; +VERAPAMIL 5 MG/2 ML VIAL. IART ONE; +VERAPAMIL 5 MG/2 ML VIAL. ONE; +diphenhydrAMINE 50 MG/ML VIAL IV ONE; +diphenhydrAMINE 50 MG/ML VIAL IVP ONE; +diphenhydrAMINE 50 MG/ML VIAL ONE; +fentaNYL PF VIAL 100 MCG/2 ML VIAL IV ONE; +fentaNYL PF VIAL 100 MCG/2 ML VIAL ONE; +methylPREDNISolone SOD SUCC PF 125 MG/2 ML VIAL. IV ONE; +methylPREDNISolone SOD SUCC PF 125 MG/2 ML VIAL. ONE
[2021-09-04 09:35] LABS: HEMATOCRIT 33.6 % (36.0-47.0); HEMOGLOBIN 11.1 g/dL (12.0-15.5); RED BLOOD COUNT 3.31 x10^6/uL (3.50-5.40); RED CELL DISTRIBUTION WIDTH 17.9 % (11.5-14.5); WHITE BLOOD COUNT 5.9 x10^3/uL (4.0-11.0)
[2021-09-04 09:46] LABS: PROTHROMBIN TIME PATIENT 13.7 SEC (11.7-14.0)
[2021-09-04 09:53] LABS: CREATININE 0.9 mg/dL (0.6-1.0); GFR 62.8; POTASSIUM 5.1 mmol/L (3.5-5.1)
--- NOTE | 2021-09-04 11:11 | PDOC ---
MODERATE SEDATION ASSESSMENT RISKS/ALTERNATIVES Risks/Alternatives Risks and alternatives of this type of sedation and procedure discussed with: RISK/ALTERNATIVES: Patient H & P ON CHART H & P H & P on chart and reviewed for co-morbid conditions and appropriate labs. H&P ON CHART: Yes STATUS PREG STATUS ASSESSED: N/A MEDS/ALLERGIES REVIEWED Meds/Allergies Reviewed Medications and Allergies including time and route of recently administered narcotics and sedatives. MEDS/ALLERGIES REVIEWED: Yes ASA RATING ASA RATING: III AIRWAY ASSESSMENT Airway Assessment Airway patency, oral function limitations, presence of caps, crowns, dentures, partials, and ability to extend neck assessed. AIRWAY ASSESSMENT: Yes MALLAMPATI SCORE MALLAMPATI SCORE: II PRE-SEDATION ASSESSMENT PRE-SEDATION ASSESSMENT: Yes JENIFER SHARMA MD Sep 04, 2021 11:11
--- NOTE | 2021-09-04 11:30 | CARD ---
MR#: [id number] Date of Study: 09/04/2021 Ordering Physician: JENIFER SHARMA, Referring Physician: Timothy DUONG: Christi Li APPROVED REPORT Technologist: Christi Li Nurse: Ly Rutherford RN Procedure(s) performed: Left heart catheterization, selective coronary angiography via right transrad ial approach fl time: 1.5 min dose: 39 gycm2 contrast: 58 ml moderate sedation: 22 min INDICATION The indication(s) include : unstable angina . CSHA Clinical Frailty Scale [facility] Clinical Frailty Scale: Mildly Frail Heart Failure Heart Failure: No CASE TECHNIQUE IV conscious sedation was used throughout procedure with appropriate monitoring and was performed in the presence of a registered nurse who was an independent trained observer other than the physician p erforming the procedure. During this case, Fluoroscopy and low osmolar contrast were used for imaging . Specimen(s) Removed: No Estimated Blood loss: 15 cc's. PROCEDURE NARRATIVE After explaining the risks, benefits and alternative options, informed consent was obtained from addy ent. Patient was brought to the cardiac Electrical Cad Technician and right wrist was prepped and draped in the usual fashion after confirming a positive modified Gavin's test. Arterial access was obtained in the righ t radial artery and a 6 Iranian sheath was inserted. 6 Iranian Apolinar catheter was used to perform zachariah ective angiography of the left and right coronary arteries. LVEDP and transaortic gradients were katya sured. Patient tolerated the procedure well. Hemostasis was achieved using TR band. There were no immediate complications. The following findings were noted. FINDINGS 1. Hemodynamics: Left ventricular end-diastolic pressure of 25 mmHg. No pullback gradient across th e aortic valve. 2. Coronary angiography: a. The left main coronary artery arose from the left sinus of Valsalva, gave rise to the left anteri or descending and left circumflex arteries and did not show any significant stenosis. b. The left anterior descending artery itself did not show any significant stenosis but the second d iagonal branch which is a small caliber vessel showed 70 to 80% proximal segment stenosis, described in prior cardiac catheterizations. c. The left circumflex artery did not show any significant stenosis showed 50% stenosis in the midse gment. The obtuse marginal branch which is a small to medium caliber vessel showed 40% stenosis in t he proximal segment. These lesions were described in prior cardiac catheterization. d. The right coronary artery was a large and dominant vessel arising from the right sinus of Valsalv a that showed widely patent stent in the midsegment with 30% stenosis just distal to the stent. Conclusion Widely patent previously placed stent in the right coronary artery without any lesions needing interv ention Recommendations Medical Therapy Signed by : Jenifer Sharma, Electronically Approved : 09/04/2021 11:29:43
== END | disposition home or self-care (01) ==
LOC: CCL 08:45
PROVIDERS: ATTEND Internal Medicine Cardiovascular Disease
DX: I25.110 Atherosclerotic heart disease of native coronary artery with unstable angina pectoris (principal); I48.91 Unspecified atrial fibrillation; I10 Essential (primary) hypertension; E78.00 Pure hypercholesterolemia, unspecified; J44.9 Chronic obstructive pulmonary disease, unspecified; G47.30 Sleep apnea, unspecified; E66.9 Obesity, unspecified; E11.9 Type 2 diabetes mellitus without complications; E03.9 Hypothyroidism, unspecified; M19.90 Unspecified osteoarthritis, unspecified site; K21.9 Gastro-esophageal reflux disease without esophagitis; F41.9 Anxiety disorder, unspecified; F32.9 Major depressive disorder, single episode, unspecified; Z87.891 Personal history of nicotine dependence; Z79.84 Long term (current) use of oral hypoglycemic drugs; Z79.899 Other long term (current) drug therapy; Z98.890 Other specified postprocedural states; Z91.041 Radiographic dye allergy status; Z88.8 Allergy status to other drugs, medicaments and biological substances; Z72.89 Other problems related to lifestyle
CPT/HCPCS: 36415; 80048; 85027; 85610; 93458; 99152; C1769; C1894; J1200; J1644; J2250; J2930; J3010; J3490; Q9967